=== PATIENT | male | born 1990 | race Caucasian/White ===

== ENCOUNTER 2018-11-23 19:42 | Emergency (ER) | payer SELFPAY ==
[~2018-11-23] VITALS: Ht 172.7 cm; Wt 70.3 kg
[2018-11-23 20:50] VITALS: BP 139/64
[2018-11-23] MEDS ORDERED: HYDROcodone/Acetamin 5/325 tab ORAL ONE (21:00)
[2018-11-23] MEDS ORDERED: Azithromycin 250mg tab ORAL ONE (21:00)
--- NOTE | 2018-11-23 21:01 | NUR ---
ED Nurse Note: pt walked in c/o sorethroat and left earache started today, reports difficulty swallowing, denies sob nor resp distress. Noted mild swelling around neck area, will cont monitor. Pt AA&ox4, gcs=15, skin warm and dry, resp even and unlabored on RA.
[2018-11-23] MEDS ORDERED: IBUPROFEN600 MG ORAL (21:03)
[2018-11-23] MEDS ORDERED: ZITHROMAX250 MG ORAL (21:03)
--- NOTE | 2018-11-23 21:04 | Emergency Room Report ---
History of Present Illness General Chief Complaint: Sore Throat Source: Patient Present Illness HPI Is a 28-year-old male with no past medical history she presents with chief complaint of throat pain and swollen lymph node. Onset today. No fever chills. Worse with swallowing. No drooling. Pain is 8 out of 10. No cough or congestion. No runny nose. Allergies: Coded Allergies: No Known Allergies (Unverified , 11/23/18) Patient History Past Medical History: see triage record, old chart reviewed Past Surgical History: none Pertinent Family History: none Social History: Denies: smoking Immunizations: other Reviewed Nursing Documentation: PMH: Agreed; PSxH: Agreed Nursing Documentation-PMH Past Medical History: No Stated History Review of Systems Eye: Denies: eye pain, blurred vision ENT: Reports: throat pain, throat swelling; Denies: ear pain, nose congestion Respiratory: Denies: cough, shortness of breath Cardiovascular: Denies: chest pain, palpitations Gastrointestinal: Denies: abdominal pain, diarrhea, nausea, vomiting Musculoskeletal: Denies: back pain, joint pain Skin: Denies: rash Neurological: Denies: headache, numbness Endocrine: Denies: increased thirst, increased urine Hematologic/Lymphatic: Denies: easy bruising All Other Systems: negative except mentioned in HPI Physical Exam Vital Signs Date Time Temp Pulse Resp B/P (MAP) Pulse Ox O2 Delivery O2 Flow Rate FiO2 11/23/18 20:36 99.0 68 16 139/64 100 Room Air vitals normal Sp02 EP Interpretation: reviewed, normal General Appearance: well appearing, no apparent distress, alert Head: normocephalic, atraumatic Eyes: bilateral eye PERRL, bilateral eye EOMI ENT: hearing grossly normal, tonsillar swelling, pharyngeal erythema, tonsillar exudate, other - No trismus Neck: full range of motion, supple, no meningismus, other - Left cervical adenopathy Respiratory: chest non-tender, lungs clear, normal breath sounds Cardiovascular #1: regular rate, rhythm, no murmur Gastrointestinal: normal bowel sounds, non tender, no mass, no organomegaly, no bruit, non-distended Musculoskeletal: back normal, gait/station normal, normal range of motion Psychiatric: mood/affect normal Skin: warm/dry Medical Decision Making Diagnostic Impression: Primary Impression: Acute tonsillitis Qualified Codes: J03.90 - Acute tonsillitis, unspecified ER Course Patient presents with tonsillitis. Most likely strep. No evidence of peritonsillar abscess, retropharyngeal abscess or Óscar angina. We'll discharge home. Last Vital Signs Date Time Temp Pulse Resp B/P (MAP) Pulse Ox O2 Delivery O2 Flow Rate FiO2 11/23/18 20:36 99.0 68 16 139/64 100 Room Air Status: improved Disposition: HOME, SELF-CARE Condition: Stable Scripts Azithromycin* (ZITHROMAX*) 250 Mg Tablet 250 MG ORAL DAILY, #4 TAB Prov: Dominic Branch MD 11/23/18 Ibuprofen* (MOTRIN*) 600 Mg Tablet 600 MG ORAL THREE TIMES A DAY, #30 TAB 0 Refills Prov: Dominic Branch MD 11/23/18 Patient Instructions: Tonsillitis Additional Instructions: Increase fluids. Salt water gargle. Follow-up with your Dr. in 2 days for recheck. Return if worse. Dominic Branch MD Nov 23, 2018 21:04
--- NOTE | 2018-11-23 21:14 | NUR ---
ED Nurse Note: pt cleared to be d/c per ERMD, pt discharge and aftercare instruction provided w/ prescription, pt education done via discussion and handout, pt advised to follow up with pcp or return to ed if sx worsen or new sx develop, pt verbalized understanding and agrees with plan, pt ambulatory w/ steady gait, left w/ all belongings, id band removed.
[2018-11-23 21:17] VITALS: BP 128/61
== END 2018-11-23 21:30 | disposition home or self-care (01) ==
LOC: EMR 21:23
DX: J03.90 Acute tonsillitis, unspecified (principal)
CPT/HCPCS: 99282; J7512